=== PATIENT | female | born 1995 | race Caucasian/White ===

== ENCOUNTER 2016-11-22 07:23 | Inpatient (IN) ==
[2016-11-22] MEDS ORDERED: Ipratropium/Albuterol Neb 3 ML IH ONE ×2 (07:43→07:47)
[2016-11-22] MEDS ORDERED: predniSONE 20 MG TABLET PO ONE (07:47)
--- NOTE | 2016-11-22 07:51 | Emergency Department Note ---
Disposition Clinical Impression: Pulmonary embolism Qualifiers: Pulmonary embolism type: other Chronicity: acute Acute cor pulmonale presence: without acute cor pulmonale Qualified Code(s): I26.99 - Other pulmonary embolism without acute cor pulmonale Disposition: Admitted As Inpatient Condition: Fair Time of Disposition: 13:02 SOB HPI - General Chief Complaint: ED Shortness of Breath/Dyspnea Stated Complaint: HAILEE Source: patient Limitations: no limitations Nursing Notes Reviewed: Yes Vital Signs Reviewed: Yes - History of Present Illness 21-year-old female was at work today, started feeling pain in her chest, pain with deep inspiration. Patient also has shortness of breath, history of asthma , she only takes when necessary albuterol, and did use her coworkers albuterol today and seemed to help her symptoms somewhat she does use OCPs started in May 2016 previousy on Depo 6/10 CP retrosternal, tight feeling, worse with inspiration. She has no history of blood clots. Pt Subjective Complaint: shortness of breath Onset (ago): day(s) Severity: mild Improves with: nothing Worsens with: nothing Associated symptoms: Reports: chest pain, wheezing. Denies: fever, cough Treatment prior to arrival: bronchodilator Cough present: No - Related Data Home Medications Medication Instructions Recorded Confirmed Levothyroxine [Synthroid] 125 mcg PO HS 11/22/16 11/22/16 Norgestimate-Ethinyl Estradiol 1 tab PO HS 11/22/16 11/22/16 [Sprintec 28 Day Tablet] Allergies Allergy/AdvReac Type Severity Reaction Status Date / Time codeine Allergy Difficulty Verified 11/22/16 13:21 Breathing ketorolac [From Toradol] Allergy Swelling Verified 11/22/16 13:21 of the Eye Review of Systems: All systems were reviewed with historian and negative except as per below, or as documented in the HPI. Constitutional: Denies: fever, chills, weight changes Eyes: Denies: vision changes, eye pain ENT: Denies: nasal congestion, sore throat CV: + for chest pain Denies: chest pain, palpitations Resp: +dyspnea Denies: cough, hemoptysis GI: Denies: abdominal pain, N/V/D/C Denies: dysuria, hematuria MSK: Denies: back pain, neck pain, extremity pain Skin: Denies: new rashes, new lesions Neuro: Denies: DELGADO, weakness, sensory changes, gait difficulty Psych: Denies: anxiety, depression All systems ED: reviewed and negative except as stated. Past Medical History - Past Medical History Attestation: Yes The following information was validated with the patient. Source: patient Medical history: Reports: asthma, thyroid disease Psychiatric history: Reports: no psych history GENERAL MANAGER IN TRAINING history: Reports: polycystic ovary syndrome - Social History Smoking Status: Never smoker Smokeless Tobacco Status: No Alcohol use: Reports: none Drug use: Reports: none Physical Exam Constitutional: alert and oriented appears agitated. vital signs reviewed and wnl HEENT: NCAT, sclera anicteric, PERRLA bilaterally, normal external ears bilaterally, nasal septum nondeviated, average dentition, MMM Neck: normal inspection, neck is supple, trachea midline Resp: Wheezes scattered bilat CV: RRR, no m/g/r GI: normal inspection, Soft, NTND, BS present Back: normal inspection, no tenderness to palpation Skin: No rashes, skin warm, dry, intact - General Limitations: no limitations General appearance: alert Course Course Narrative: 21-year-old female chest pain shortness of breath, we will give doing nebs, steroids, reassessing the patient some wheezing on her exam - Reevaluation(s) Reevaluation #1: With no improvement after 2 nebs, patient does have chest pain, given his diffuse, cannot essentially rule her out with PERC criteria, I did a d-dimer that was elevated at 900, so CTA was ordered. This is pending at this time. StAble O2 sats 100%, other vital signs within normal limits Time: 11:10 Reevaluation #2: Pulmonary embolism found on CTA, patient started on heparin, after BMP CBC and coagulation studies were ordered, I did discuss the case with due to, and the patient, she understands that she will be likely on anticoagulation for period of time, no true provoking factors, patient does not have a clear history of coagulopathy, except for her paternal grandmother in elderly age. Time: 13:00 Vital Signs Temperature 98 F 11/22/16 07:33 Pulse Rate 71 11/22/16 07:33 Respiratory Rate 16 11/22/16 07:33 Blood Pressure 128/84 11/22/16 07:33 O2 Sat by Pulse Oximetry 97 11/22/16 07:33 Temperature 98 F 11/22/16 07:33 Pulse Rate 102 11/22/16 13:19 Respiratory Rate 16 11/22/16 13:19 Blood Pressure 116/59 11/22/16 13:19 O2 Sat by Pulse Oximetry 98 11/22/16 13:19 Oxygen Delivery Oxygen Delivery Nasal Cannula Shortness of Breath/Dyspnea - MDM Narrative Medical decision making narrative: 21-year-old female with new onset unprovoked pulmonary embolus started on anticoagulation in stable condition, and admitted to medicine service - Differential Diagnosis Likely: acute exacerbation of chronic obstructive airways disease, congestive heart failure - Medical Records Medical records reviewed: Yes I reviewed the patient's medical records. - Lab Data Lab results reviewed: Yes I reviewed the patient's lab results. Result diagrams: 11/22/16 12:52 Lab Results 11/22/16 11/22/16 Range/Units 09:01 12:52 D-Dimer 904 H (0-500) ng/mLFEU Sodium 137 (136-145) mEq/L Potassium 4.3 (3.5-4.5) mEq/L Chloride 106 (98-109) mEq/L Carbon Dioxide 19 (19-29) mEq/L BUN 8 (7-20) mg/dL Creatinine 0.76 (0.57-1.11) mg/dL Est GFR ( Amer) > 60 (> 60) Est GFR (Non-Af Amer) > 60 (> 60) BUN/Creatinine Ratio 11 (6-26) Glucose 133 H (70-99) mg/dL Calculated Osmolality 284 (280-300) Calcium 9.8 (8.6-10.8) mg/dL - Radiology Data Radiology results reviewed: Yes I reviewed the patient's radiology results. Chest X-Ray 11/22/16 07:56 IMPRESSION: Normal chest x-ray D/ / Conor Reed MD / Conor Reed MD Interpreting Provider: Conor Reed MD - EKG Data EKG attestation: Yes I reviewed and interpreted this EKG. EKG shows normal: Reports: sinus rhythm Rate: Reports: normal (71 bpm NM 178 QRS [address] segment elevations or depressions,) Rhythm: Reports: NSR [place]/QRS: Reports: normal When compared to previous EKG there are: previous EKG unavailable Interpretation: Reports: normal EKG, nonspecific ST-T wave changes - Core Measures AMI Core Measures Followed: No Measure Exclusions: not indicated
--- NOTE | 2016-11-22 07:53 | Emergency Department Note ---
START Narrative - START START: I examined this patient and my medical decision-making was reviewed with the FINANCIAL AID COORDINATOR/PA/Advanced Practice Nurse/Resident Physician. I agree with the documented findings, disposition and treatment plan as described except to the extent set forth below. ED attending note: Patient seen with emergency medicine resident Dr. Franks. Please see a copy of his note for details of the H&P, evaluation, management and disposition of this patient. We independently had [id number] contact with the patient Briefly: 21-year-old female presents with difficulty in breathing history of asthma. Had some mild expiratory adventitious breath sounds. EKG shows normal sinus rhythm without acute ischemic changes. Disposition pending. Patient stable.
[2016-11-22] MEDS ORDERED: *HR* Heparin 5,000 UNIT/ML VIAL IVP ONE (12:30)
[2016-11-22] MEDS ORDERED: *HR* Heparin 5,000 UNIT/ML VIAL IVP PRN (12:30)
[2016-11-22] MEDS ORDERED: *HR* HYDROmorphone (PF) 1 MG/ML SYRINGE IVP ONE (12:36)
[2016-11-22] MEDS ORDERED: Ondansetron 4 MG/2 ML VIAL IVP ONE (12:36)
[2016-11-22 13:11] LABS: BUN/Creatinine Ratio 11 (6-26); Blood Urea Nitrogen 8 mg/dL (7-20); Calcium 9.8 mg/dL (8.6-10.8); Carbon Dioxide 19 mEq/L (19-29); Chloride 106 mEq/L (98-109); Glucose 133 mg/dL (70-99); Osmolality,Calculated 284 (280-300); Potassium 4.3 mEq/L (3.5-4.5); Sodium 137 mEq/L (136-145); eGFR For African Americans > 60 (> 60); eGFR For Non-African Americans > 60 (> 60)
[2016-11-22] MEDS ORDERED: Acetaminophen 325 MG TABLET PO PRN (13:34)
[2016-11-22] MEDS ORDERED: Naloxone 0.4 MG/ML INJ IVP PRN (13:34)
--- NOTE | 2016-11-22 14:02 | Internal Med History&Physical ---
Addendum entered and electronically signed by Lashell Clancy CNP 11/23/16 01: 03: This evening, patient was reporting headache, left arm numbness and tingling, and right knee pain. Headache and right knee pain were unrelieved by tylenol. On re-examination, patient had equal strength bilaterally, normal capillary refill, cranial nerves intact, no pronator drift. Patient given norco for pain. Patient reported pain in knee was relieved, but headache and left arm numbness and tingling persisted. CT of head and brain ordered. Original Note: <Lashell Clancy - Last Filed: 11/23/16 01:01> Date of Encounter: 11/22/16 Time of Encounter: 13:44 Assessment and Plan (1) Pulmonary embolism Status: Acute Patient presented with pain with breathing and SOB. D-dimer was elevated to 900 and CTA revealed small nonocclusive emboli on right and questionable emboli on the left. She is on oral control pills to regulate her periods. She does not smoke. She reports her grandmother recently had a PE. She reports her knees have felt achy in the last week, but denies any increased swelling of the legs. On exam, legs are not edematous, no erythema or tenderness. Heparin drip BLE dopplers echocardiogram hypercoagulable work up Check CBC and coags again tomorrow. Transition to oral anticoagulation tomorrow. Qualifiers: Pulmonary embolism type: other Chronicity: acute Acute cor pulmonale presence: without acute cor pulmonale Qualified Code(s): I26.99 - Other pulmonary embolism without acute cor pulmonale (2) Asthma Status: Acute continue home dose of albuterol inhaler prn Qualifiers: Asthma severity: unspecified severity Asthma complication type: uncomplicated Qualified Code(s): J45.909 - Unspecified asthma, uncomplicated (3) DVT prophylaxis Status: Acute ambulate with assistance anti-embolic stockings Patient on heparin drip for PE diagnosis Internal Medicine - H&P: HPI Chief complaint: chest pain and shortness of breath Admitted From: Emergency Dept Plans for Post Hospital Care: Home History of present illness: Ms. Rogers is a 21 year old female with asthma, polymenorrhea controlled with control, hypothyroid, who presented to emergency department today with complaints of chest pain with breathing and shortness of breath. She reports she first noted a sharp pain in her right side on breathing 2 days ago and thought she may be starting to get sick. She started coughing yesterday and had pain in her chest with coughing. Today, she was at work and started having sharp chest pain in her mid sternal area radiating to her right side, accompanied by shortness of breath. She reports when she takes a deep breath or cough the pain occurs. She denies any palpitations, headache. She reports some lightheadedness earlier today as while she has been in the ED. She denies any nausea, vomiting, abdominal pain, diarrhea. She denies any fever, chills, sweats, body aches. She does note her knees have been aching the last week denies any noticeable swelling in her legs. Evaluation in the emergency department included a chest x-ray which was normal, EKG which showed NSR, A d- dimer which was elevated at 907 CTA was obtained and showed small nonocclusive emboli on the right and questionable on the left. As well as patchy airspace opacity and superior left lower lobe. On exam patient is alert and oriented in no acute distress. She has inspiratory wheezes bilaterally, lower extremities are nonedematous with no erythema noted tenderness. Past Med Surg Social Fam HX - Past Medical History Medical history: asthma, thyroid disease Psychiatric history: no psych history - Past Surgical History Surgical History: orthopedic, other (right hip surgery 2016) - Social History Smoking Status: Never smoker Smokeless Tobacco Status: No Alcohol use: none Drug use: none - Family History Maternal Grandmother Hx Family Cardiac Disorders: Yes Hx Family Cancer: Yes Hx Family Endocrine Disorder: Yes (diabetes) Internal Medicine - H&P: Meds Levothyroxine [Synthroid] 125 mcg PO HS 11/22/16 [History] Norgestimate-Ethinyl Estradiol [Sprintec 28 Day Tablet] 1 tab PO HS 11/22/16 [ History] Albuterol Sulfate [Proair Hfa] 2 puff IH Q4-6H PRN 11/23/16 [History] Rivaroxaban [Xarelto] 15 mg PO BID 60 Days 11/24/16 [Rx] Allergies codeine Allergy (Verified 11/22/16 13:21) Difficulty Breathing ketorolac [From Toradol] Allergy (Verified 11/22/16 13:21) Swelling of the Eye Facial Swelling All Systems PM: A 10-system review of systems was performed and is negative for pertinent findings except as documented above in the HPI. - Constitutional Constitutional: no chills, no fever(s), no night sweats - EENT Eyes: no change in vision, no discharge, no pain, no photophobia Ears: no ear discharge, no ear pain, no tinnitus Nose, mouth and throat: no dysphagia, no nasal discharge, no neck pain, no sore throat - Cardiovascular Cardiovascular ROS IM: chest pain, dyspnea, dyspnea on exertion, lightheadedness , no diaphoresis, no palpitations, no syncope - Respiratory Respiratory: cough, dyspnea, dyspnea on exertion, pain on inspiration, pain with cough, no wheezing, no excessive phlegm production - Gastrointestinal Gastrointestinal: no abdominal pain, no diarrhea, no hematemesis, no hematochezia, no melena, no nausea, no vomiting - Genitourinary Genitourinary: no change in urinary stream, no dysuria, no flank pain, no hematuria - Musculoskeletal Musculoskeletal ROS IM: no numbness, no tingling - Integumentary Integumentary IM: no rash, no unusual bruising - Neurological Neurological ROS: no confusion, no convulsions, no focal weakness, no numbness, no tingling, no tremor(s) - Hematologic/Lymphatic Hematologic/Lymphatic: no easy bruising - Constitutional Vitals: Temp Pulse Resp BP Pulse Ox 98 F 102 16 116/59 98 11/22/16 07:33 11/22/16 13:19 11/22/16 13:19 11/22/16 13:19 11/22/16 13:19 General appearance: Present: A&O X 3, pleasant, no acute distress - Head Head exam: Present: atraumatic, normocephalic - Eye Eye exam: Present: PERRL, conjuntiva pink, sclera anicteric Pupils: Present: PERRL - Neck Neck exam general surgery: Present: supple, trachea midline. Absent: lymphadenopathy - Respiratory Respiratory exam: Present: wheezes (inspiratory). Absent: accessory muscle use , rales, rhonchi - Cardiovascular Cardiovascular exam: Present: RRR, +S1, +S2. Absent: diastolic murmur, gallop, rubs, systolic murmur - GI/Abdominal GI/Abdominal exam: Present: normal bowel sounds, soft, no peritoneal signs. Absent: distended, tenderness - Extremities Exam Extremities exam: Present: warm, radial pulses palpable and symetrical. Absent : calf tenderness, cyanotic, pedal edema - Neurological Exam Neurological exam: Present: CN II-XII intact, oriented X3, no focal deficits. Absent: facial droop, speech deficit - Skin Skin exam: Present: dry, intact Internal Med - H&P Results - Labs CBC & Chem 7: 11/22/16 14:30 11/22/16 12:52 Labs: All Lab Results (24 Hours) 11/22/16 11/22/16 Range/Units 09:01 12:52 D-Dimer 904 H (0-500) ng/mLFEU Sodium 137 (136-145) mEq/L Potassium 4.3 (3.5-4.5) mEq/L Chloride 106 (98-109) mEq/L Carbon Dioxide 19 (19-29) mEq/L BUN 8 (7-20) mg/dL Creatinine 0.76 (0.57-1.11) mg/dL Est GFR ( Amer) > 60 (> 60) Est GFR (Non-Af Amer) > 60 (> 60) BUN/Creatinine Ratio 11 (6-26) Glucose 133 H (70-99) mg/dL Calculated Osmolality 284 (280-300) Calcium 9.8 (8.6-10.8) mg/dL - Diagnostic Studies Chest x-ray Additional comments: Chest X-Ray 11/22/16 07:56 IMPRESSION: Normal chest x-ray D/ / Conor Reed MD / Conor Reed MD Interpreting Provider: Conor Reed MD CT scan - chest Additional comments: Chest CTA 11/22/16 09:24 IMPRESSION: Small nonocclusive emboli are noted on the right and are questioned on the left. There is patchy airspace opacity in the superior segment left lower lobe which may represent sequela of infarction versus pneumonia. Findings were discussed with Asif Franks at 12:27 pm on 11/22/2016. D/ / 11/22/2016 12:33:10 Ash Grace MD / michael Interpreting Provider: Ash Grace MD <Navin Keen - Last Filed: 11/24/16 17:46> Internal Medicine - H&P: HPI History of present illness: Ms. Rogers is a 21 year old female Past Med Surg Social Fam HX - Family History Maternal Grandmother Hx Family Cardiac Disorders: Yes Hx Family Cancer: Yes Hx Family Endocrine Disorder: Yes (diabetes) Paternal Grandmother Hx Family Respiratory Disorders: Yes (recently having a pulmonary embolus.) All Systems PM: A 10-system review of systems was performed and is negative for pertinent findings except as documented above in the HPI. - Constitutional Vitals: Temp Pulse Resp BP Pulse Ox 98.1 F 56 18 119/57 97 11/24/16 07:18 11/24/16 07:18 11/24/16 07:18 11/24/16 07:18 11/24/16 07:18 Internal Med - H&P Results - Labs CBC & Chem 7: 11/24/16 06:49 11/24/16 06:49 Labs: Short CBC 11/24/16 Range/Units 06:49 WBC 7.5 (4.3-11.1) K/mcL Hgb 10.6 L (11.5-15.4) g/dL Hct 34.4 L (35.3-44.9) % Plt Count 220 (140-400) K/mcL Neutrophils # 2.6 (1.6-8.9) K/mcL BMP 11/24/16 06:49 Sodium 140 Potassium 4.1 Chloride 109 Carbon Dioxide 25 BUN 14 Creatinine 0.72 Glucose 94 Calcium 8.1 L - Impressions ITS Impressions Head CT 11/23/16 00:05 IMPRESSION: No acute intracranial abnormality. D/ / Frankie Thomas MD / Frankie Thomas MD Interpreting Provider: Frankie Thomas MD - Attending Attestation I examined this patient and my medical decision-making was reviewed with the Advanced Practice Nurse. I agree with the documented findings, disposition and treatment plan as described except to the extent set forth below. Patient presents to hospital with chest pain. She was found to have bilateral PEs. We will admitted to the service and treated her with subcutaneous Lovenox. Initiate a hypercoagulable workup. I have discussed the options of anticoagulation with her and she would prefer to start a NOAC.
[2016-11-22 14:52] LABS: Basophils % 0.1 %; Eosinophils % 0.1 %; Hemoglobin 11.4 g/dL (11.5-15.4); Immature Granulocytes % 0.1 % (0-4); Lymphocytes # 0.8 K/mcL (0.6-4.6); Lymphocytes % 9.5 %; Mean Corpuscular HGB Conc 31.7 g/dL (31.6-35.5); Mean Corpuscular Hemoglobin 25.6 pg (28.0-33.3); Mean Corpuscular Volume 80.7 fL (83.0-100.0); Monocytes # 0.1 K/mcL (0.0-1.3); Monocytes % 1.4 %; Neutrophils # 7.1 K/mcL (1.6-8.9); Platelet Count 244 K/mcL (140-400); Red Blood Count 4.46 M/mcL (3.82-4.97); Red Cell Distribution Width 13.1 % (11.5-14.5); Segmented Neutrophils % 88.8 %
[2016-11-22] MEDS ORDERED: Lidocaine 1% 20 ML MDV ID PRN (15:02)
[2016-11-22 16:07] LABS: INR 1.1; Prothrombin Time 11.8 Seconds (9.4-12.1)
[2016-11-22] MEDS: Heparin 25,000 UNIT/500 ML D5W 25,000 UNIT/500 ML MLS IVC SCH (16:22)
[2016-11-22] MEDS: *HR* HYDROcodone/Acet 5/325 mg TABLET PO PRN (21:49)
[2016-11-22 21:56] LABS: Activated Partial Thrombo Time 67.1 Seconds (26.0-36.0)
[2016-11-22 22:14] LABS: INR 1.2; Prothrombin Time 12.6 Seconds (9.4-12.1)
[2016-11-23 03:55] LABS: Basophils % 0.1 %; Eosinophils % 0.1 %; Hematocrit 33.8 % (35.3-44.9); Hemoglobin 10.8 g/dL (11.5-15.4); Immature Granulocytes % 0.2 % (0-4); Lymphocytes # 2.4 K/mcL (0.6-4.6); Lymphocytes % 21.9 %; Mean Corpuscular Hemoglobin 26.1 pg (28.0-33.3); Mean Corpuscular Volume 81.6 fL (83.0-100.0); Mean Platelet Volume 11.7 fL (9.4-12.4); Monocytes # 0.8 K/mcL (0.0-1.3); Monocytes % 7.3 %; Neutrophils # 7.7 K/mcL (1.6-8.9); Platelet Count 249 K/mcL (140-400); Red Blood Count 4.14 M/mcL (3.82-4.97); Red Cell Distribution Width 13.4 % (11.5-14.5); Segmented Neutrophils % 70.4 %
[2016-11-23] MEDS: *HR* HYDROcodone/Acet 5/325 mg TABLET PO PRN ×3 (03:58→22:14)
[2016-11-23 04:06] LABS: INR 1.1; Prothrombin Time 12.2 Seconds (9.4-12.1)
[2016-11-23 04:08] LABS: Activated Partial Thrombo Time 49.8 Seconds (26.0-36.0)
[2016-11-23 04:10] LABS: BUN/Creatinine Ratio 14 (6-26); Blood Urea Nitrogen 9 mg/dL (7-20); Calcium 8.6 mg/dL (8.6-10.8); Carbon Dioxide 23 mEq/L (19-29); Chloride 109 mEq/L (98-109); Glucose 121 mg/dL (70-99); Osmolality,Calculated 288 (280-300); Sodium 139 mEq/L (136-145); eGFR For African Americans > 60 (> 60); eGFR For Non-African Americans > 60 (> 60)
[2016-11-23] MEDS: *HR* Heparin 5,000 UNIT/ML VIAL IVP PRN ×2 (04:14→11:48)
[2016-11-23 10:49] LABS: INR 1.1; Prothrombin Time 11.7 Seconds (9.4-12.1)
[2016-11-23 10:52] LABS: Activated Partial Thrombo Time 45.6 Seconds (26.0-36.0)
--- NOTE | 2016-11-23 10:58 | ECHO - Doppler Report ---
Echocardiogram Name: Gina Rogers Date of Study: 11/23/2016 Date: 1995 Ht: 65.0 in Medical Record#: [id number] Age: 21 Wt: 182.0 lb Gender: Female BSA: 1.9 Order #: [id number] Location: [facility] Room #: [id number] Reading Physician: Bang Tripp DO, NAYE, SERA SWAN Fur Glosser: Stephanie Rider Ordering Physician: Lashell Clancy CNP Primary Physician: Anushka Munguia CNP Indications: PE Impressions: LVEF 60-65%. Normal LV chamber size, wall thickness and function. Normal left ventricular diastolic function. Normal right ventricular structure and function. No evidence of pulmonary hypertension. No significant valvular dysfunction. Left Ventricular Wall Motion: Rest Echo Findings All wall segments showed normal motion. Findings: Study Quality * Technically adequate exam. ECG Findings * Normal sinus rhythm. Left Ventricle * LVEF 60-65%. * Normal LV chamber size, wall thickness and function. * Normal left ventricular diastolic function. Right Ventricle * Normal right ventricular structure and function. Left Atrium * Normal left atrial size. Right Atrium * Normal right atrial size. Interatrial Septum * Interatrial septum not well evaluated. Aortic Valve * Aortic valve not well visualized. * No aortic regurgitation. * No aortic stenosis. Mitral Valve * Normal mitral valve structure and function. * No mitral stenosis. * Trace mitral regurgitation. Tricuspid Valve * Normal tricuspid valve structure and function. * Trace tricuspid regurgitation. * No evidence of pulmonary hypertension. Pulmonic Valve * Normal pulmonic valve structure and function. * No pulmonic regurgitation. Aorta * Normally sized aortic root. Pericardium * The pericardium appears normal. IVC * Normal IVC dimensions and inspiratory collapse. Pulmonary Artery * Normal visualized portions of the main pulmonary artery. History Measurements: BP: 110/ 55 2D Normal Values RVIDd: 2.55 cm <2.7 cm IVSd: 1.00 cm 0.6 - 1.0 cm LVIDd: 4.45 cm 3.7 - 5.6 cm LVPWd: .95 cm 0.6 - 1.1 cm LVIDs: 2.40 cm 1.5 - 3.6 cm AO: 2.00 cm < 4.0 cm LA: 3.30 cm 2.0 - 4.0cm %FS: 46.70 cm >25 % LA volume: 31 Mitral Valve Peak E:.97 m/sec Peak A:.50 m/sec E/A Ratio:1.9 Peak E' Lat Tae:17.6 cm/s Peak E' Med Tae:10.5 cm/s E/E' Lat Ratio:5.5 E/E' Med Ratio:9.2 Tricuspid Valve TV Regurg Peak Grad: 22.00mmHg TV Regurg Peak Tae: 2.36m/sec Updated by Bang Tripp DO, FACEliazar, SOSA, FASANN MARIE on 11/23/2016 10:47:06 AM electronically signed on 11/23/2016 10:53:44 AM with status of Final Wall Motion Alvarado: 1=Normal, 2=Hypokinesis, 3=Akinesis, 4=Dyskinesis, 5=Aneurysmal, 6=Hyperkinetic, X=Not Visualized (Blank)=Missing
[2016-11-23] MEDS: Heparin 25,000 UNIT/500 ML D5W 25,000 UNIT/500 ML MLS IVC SCH (11:46)
--- NOTE | 2016-11-23 15:29 | Electrocardiograph Report ---
[place] [id number] Test Date: 2016-11-22 Pat Name: Gina Rogers Department: 103 Room: [facility] [place] Gender: F Continuous Loft Operator: : 1995 Requested By: Asif Franks Order Number: [id number] Reading MD: Maxx Vargas MD Measurements Intervals [place] Rate: 71 P: 27 MT: 158 QRS: 50 QRSD: 93 T: 35 QT: 382 QTc: 405 Interpretive Statements SINUS RHYTHM WITH SINUS ARRHYTHMIA Poor R wave progression Electronically Signed On 11-23-2016 15:27:26 EDT by Maxx Vargas MD
--- NOTE | 2016-11-23 17:07 | Internal Med Progress Note ---
Date of Encounter: 11/23/16 Time of Encounter: 10:00 - Assessment and plan (1) Pulmonary embolism Current Visit: Yes Status: Acute Assessment and plan: Acute PE on CTA. Symptoms of pleuritic chest pain. Patient has history of OCP use. Family history of PE (Grandmother) 1. Will continue heparin drip. 2. Duplex legs shows no DVT. 3. Echo shows no signs of RV strain. 4. Advised patient to stop taking OCP 5. May switch to xarelto if insurance covers. 6. Oncology consult. 7. Coagulopathy workup ordered. Patient is at high risk because she is on heparin drip, need close monitoring. Qualifiers: Pulmonary embolism type: other Chronicity: acute Acute cor pulmonale presence: without acute cor pulmonale Qualified Code(s): I26.99 - Other pulmonary embolism without acute cor pulmonale (2) Asthma Current Visit: Yes Status: Acute Assessment and plan: Stable, continue home medication Qualifiers: Asthma severity: unspecified severity Asthma complication type: uncomplicated Qualified Code(s): J45.909 - Unspecified asthma, uncomplicated (3) DVT prophylaxis Current Visit: Yes Status: Acute Assessment and plan: Patient is on heparin drip - Subjective Interval history: Patient is a 21-year-old female admitted for acute PE. Past medical history is significant for asthma, OCP use. Patient was seen and examined. She is awake alert and oriented 3. Still complaining of mild chest pain on deep breathing. Vitals are stable. No tachycardia, no hypotension, Echo has been done, no signs of right ventricular strain. Will continue heparin drip for anticoagulation. Patient said she would like to switch to xarelto. Prescription has been sent to pharmacy for insurance coverage check. We will treatment counselor hematology for further management. - Constitutional Vitals: Temp Pulse Resp BP Pulse Ox 98.1 F 66 15 118/46 98 11/23/16 16:00 11/23/16 16:00 11/23/16 16:00 11/23/16 16:00 11/23/16 16:00 General appearance: Present: A&O X 3, pleasant, no acute distress - Head Head exam: Present: atraumatic, normocephalic - Eye Eye exam: Present: PERRL, conjuntiva pink, sclera anicteric Pupils: Present: PERRL - Neck Neck exam general surgery: Present: supple, trachea midline. Absent: lymphadenopathy - Respiratory Respiratory exam: Present: CTAB. Absent: accessory muscle use, rales, rhonchi, wheezes - Cardiovascular Cardiovascular exam: Present: RRR, +S1, +S2. Absent: diastolic murmur, gallop, rubs, systolic murmur - GI/Abdominal GI/Abdominal exam: Present: normal bowel sounds, soft, no peritoneal signs. Absent: distended, tenderness - Extremities Exam Extremities exam: Present: warm, radial pulses palpable and symetrical. Absent : calf tenderness, cyanotic, pedal edema - Neurological Exam Neurological exam: Present: CN II-XII intact, oriented X3, no focal deficits. Absent: pronater drift, facial droop, speech deficit - Skin Skin exam: Present: dry, intact Internal Medicine: Result - Labs CBC & Chem 7: 11/23/16 03:48 11/23/16 03:48 Labs: Short CBC 11/23/16 Range/Units 03:48 WBC 11.0 (4.3-11.1) K/mcL Hgb 10.8 L (11.5-15.4) g/dL Hct 33.8 L (35.3-44.9) % Plt Count 249 (140-400) K/mcL Neutrophils # 7.7 (1.6-8.9) K/mcL BMP 11/23/16 03:48 Sodium 139 Potassium 4.0 Chloride 109 Carbon Dioxide 23 BUN 9 Creatinine 0.66 Glucose 121 H Calcium 8.6 - ABG Interpretation ABG results: PT/INR, D-dimer PT 11.7 Seconds (9.4-12.1) 11/23/16 10:37 D-Dimer 904 ng/mLFEU (0-500) H 11/22/16 09:01 - Impressions Impressions Head CT 11/23/16 00:05 IMPRESSION: No acute intracranial abnormality. D/ / Frankie Thomas MD / Frankie Thomas MD Interpreting Provider: Frankie Thomas MD - VTE Documentation of Mechanical Device: Graduated compression elastic hosiery Consult Discharge Plan - Plan Referrals: Anushka Munguia, [employer] [Primary Care Provider] -
[2016-11-23] MEDS ORDERED: Ondansetron 4 MG/2 ML VIAL IVP PRN (19:38)
[2016-11-24] MEDS: *HR* Heparin 5,000 UNIT/ML VIAL IVP PRN (01:14)
[2016-11-24] MEDS: Heparin 25,000 UNIT/500 ML D5W 25,000 UNIT/500 ML MLS IVC SCH (06:20)
[2016-11-24 07:11] LABS: Basophils % 0.5 %; Eosinophils # 0.3 K/mcL (0.0-0.6); Eosinophils % 3.9 %; Hematocrit 34.4 % (35.3-44.9); Hemoglobin 10.6 g/dL (11.5-15.4); Immature Granulocytes % 0.1 % (0-4); Lymphocytes # 4.1 K/mcL (0.6-4.6); Lymphocytes % 54.9 %; Mean Corpuscular HGB Conc 30.8 g/dL (31.6-35.5); Mean Corpuscular Hemoglobin 25.4 pg (28.0-33.3); Mean Corpuscular Volume 82.5 fL (83.0-100.0); Monocytes # 0.4 K/mcL (0.0-1.3); Monocytes % 5.7 %; Neutrophils # 2.6 K/mcL (1.6-8.9); Platelet Count 220 K/mcL (140-400); Red Blood Count 4.17 M/mcL (3.82-4.97); Red Cell Distribution Width 13.3 % (11.5-14.5); Segmented Neutrophils % 34.9 %
[2016-11-24 07:20] VITALS: BP 119/57
[2016-11-24 07:24] LABS: BUN/Creatinine Ratio 19 (6-26); Blood Urea Nitrogen 14 mg/dL (7-20); Calcium 8.1 mg/dL (8.6-10.8); Carbon Dioxide 25 mEq/L (19-29); Chloride 109 mEq/L (98-109); Glucose 94 mg/dL (70-99); Osmolality,Calculated 290 (280-300); Potassium 4.1 mEq/L (3.5-4.5); Sodium 140 mEq/L (136-145); eGFR For African Americans > 60 (> 60); eGFR For Non-African Americans > 60 (> 60)
[2016-11-24 07:36] LABS: Activated Partial Thrombo Time 120.7 Seconds (26.0-36.0)
[2016-11-24 08:15] LABS: Heparin anti-factor XA UFH 1.05 IU/mL (0.30-0.70)
[2016-11-24 08:39] LABS: Factor V Leiden Normal (Normal); Prothrombin G20210A Mutation Normal (Normal)
--- NOTE | 2016-11-24 08:49 | Discharge Summary ---
Date of Encounter: 11/24/16 Time of Encounter: 08:47 - Discharge Diagnosis (1) Pulmonary embolism Priority: Primary Status: Acute Comments: Acute pulmonary emboli likely related to contraception medication Qualifiers: Pulmonary embolism type: other Chronicity: acute Acute cor pulmonale presence: without acute cor pulmonale Qualified Code(s): I26.99 - Other pulmonary embolism without acute cor pulmonale (2) Asthma Priority: Secondary Status: Acute Qualifiers: Asthma severity: unspecified severity Asthma complication type: uncomplicated Qualified Code(s): J45.909 - Unspecified asthma, uncomplicated (3) DVT prophylaxis Priority: Secondary Status: Acute (4) Hypothyroidism Priority: Secondary Status: Acute Qualifiers: Hypothyroidism type: other Qualified Code(s): E03.8 - Other specified hypothyroidism - Discharge Medications Prescriptions: Rivaroxaban [Xarelto] 15 mg PO BID 60 Days Home Medications: Levothyroxine [Synthroid] 125 mcg PO HS 11/22/16 [History] Norgestimate-Ethinyl Estradiol [Sprintec 28 Day Tablet] 1 tab PO HS 11/22/16 [ History] Albuterol Sulfate [Proair Hfa] 2 puff IH Q4-6H PRN 11/23/16 [History] Rivaroxaban [Xarelto] 15 mg PO BID 60 Days 11/24/16 [Rx] Allergies/Adverse Reactions: Allergies codeine Allergy (Verified 11/22/16 13:21) Difficulty Breathing ketorolac [From Toradol] Allergy (Verified 11/22/16 13:21) Swelling of the Eye Facial Swelling Procedures/tests Complete & Pending: Procedures Performed prior 72 hours Category Date Time Status CT head/brain wo con [CT] Stat Cat Scan 11/23/16 00:05 Completed Date of admission: 11/22/16 14:26 Primary care physician: Anushka Munguia CNP Consults: 11/22/16 15:02 Consult to Invasive Line Access Team [CONS] Routine Reason for Consult: difficult access Line Type: EPIV 11/23/16 14:26 Consult to Oncology [CONS] Routine Consulting Provider: [facility] Reason for Consult: Acute PE Call Completed: Yes 11/23/16 21:43 Consult to Oncology Hematology [CONS] Routine Consulting Provider: Anushka Erickson Reason for Consult: PE Call Completed: Yes - Patient Status Disposition: Home, Self-Care Condition: Good Overall status at discharge: patient is back to baseline - Discharge Instructions Follow Up With: Anushka Munguia CNP [Primary Care Provider] - Additional Instructions: Follow with primary care physician within the next 7 days. Continue Xarelto 15 mg for 21 days then start 20 mg daily and continue for 6 months. Stop control medications. Follow-up with hematology within the next 2 weeks - Diet and Activity Activity: increase activity as tolerated Diet: regular diet Hospital course: Ms. Rogers is a 21 year old female with asthma, polymenorrhea controlled with control, hypothyroid, who presented to emergency department with complaints of chest pain with breathing and shortness of breath. She reported she first noted a sharp pain in her right side on breathing 2 days right ear to admission and thought she may be starting to get sick. She started coughing and had pain in her chest with coughing. She was at work and started having sharp chest pain in her mid sternal area radiating to her right side, accompanied by shortness of breath. She reported when she takes a deep breath or cough the pain occurs. She denied any palpitations, headache. She denied any fever, chills, sweats, body aches, no sick contacts. She does note her knees have been aching the last week denies any noticeable swelling in her legs. Evaluation in the emergency department included a chest x-ray which was normal, EKG which showed NSR, A d-dimer which was elevated at 9[address] CT angiogram of the chest shows a small nonocclusive emboli on the right long and question on the left. There was a patchy airspace opacity in the superior segment of the left lower lobe possibly an infarction, unlikely pneumonia as the patient is not symptomatic. Echocardiogram shows an ejection fraction of 60-65% with no other abnormalities The patient was continued on heparin drip, patient remained stable, she is not tachycardic or hypotensive. Saturation of oxygen is normal. Patient preferred to be discharged on Xarleto. Risks explained. The patient will have to follow up with oncology to receive the final reports of the tests performed during her hospitalization including protein C, S, lupus anticoagulant, etc. - Time Spent with Patient Total time spent providing and/or coordinating discharge services: Greater than 30 minutes (40 [id number] min) - Constitutional Vitals: Temp Pulse Resp BP Pulse Ox 98.1 F 56 18 119/57 97 11/24/16 07:18 11/24/16 07:18 11/24/16 07:18 11/24/16 07:18 11/24/16 07:18 General appearance: Present: A&O X 3, pleasant, no acute distress - Head Head exam: Present: atraumatic, normocephalic - Eye Eye exam: Present: PERRL, conjuntiva pink, sclera anicteric Pupils: Present: PERRL - Neck Neck exam general surgery: Present: supple, trachea midline. Absent: lymphadenopathy - Respiratory Respiratory exam: Present: CTAB. Absent: accessory muscle use, rales, rhonchi, wheezes - Cardiovascular Cardiovascular exam: Present: RRR, +S1, +S2. Absent: diastolic murmur, gallop, rubs, systolic murmur - GI/Abdominal GI/Abdominal exam: Present: normal bowel sounds, soft, no peritoneal signs. Absent: distended, tenderness - Extremities Exam Extremities exam: Present: warm, radial pulses palpable and symetrical. Absent : calf tenderness, cyanotic, pedal edema - Neurological Exam Neurological exam: Present: CN II-XII intact, oriented X3, no focal deficits. Absent: pronater drift, facial droop, speech deficit - Skin Skin exam: Present: dry, intact - VTE Documentation of Mechanical Device: Graduated compression elastic hosiery
[2016-11-24] MEDS ORDERED: *HR* Rivaroxaban 15 MG TABLET PO SCH (09:15)
--- NOTE | 2016-11-24 16:01 | Oncology Inp Consult Note ---
<GeorginaAnushka E - Last Filed: 11/24/16 15:59> Date of Encounter: 11/24/16 Time of Encounter: 15:00 Assessment and Plan (1) Pulmonary embolism Status: Acute Assessment and plan: Patient being discharged today on Xarelto 15 mg bid. We discussed side effects associated with Xarelto She was instructed not to resume control pills. Negative prothrombin mutation. She will f/u as outpatient. Qualifiers: Pulmonary embolism type: other Chronicity: acute Acute cor pulmonale presence: without acute cor pulmonale Qualified Code(s): I26.99 - Other pulmonary embolism without acute cor pulmonale - Data of Consult Patient: new to practice Consult date: 11/24/16 Requesting Physician: Junito Sinclair Primary Care Provider: Anushka Munguia CNP - Consult Narrative Reason for consult: Pulmonary embolism History of present illness: Ms. Rogers is a 21 year old female was admitted to [facility] through the ED. on 11/22/2016 she presented to the emergency room chest pain and increasing shortness of breath. She reported that she first noted shortness of breath about 3-4 days prior to coming to the ER for that day shortness of breath and increased and she was also having sharp chest pain when she took a deep breath. While in the emergency room she had a D-dimer of 907. She also had a CTA of the chest indicated a small nonocclusive emboli in the right and questionable on the left as well as a patchy airspace obesity in the superior left lower lobe. She reported having headache with left arm numbness and tingling the pain was unrelieved by Tylenol, CT of the head was ordered, was negative. She is on oral control secondary to having ovarian cysts. She has no previous history of clots. She reports her maternal grandmother having pulmonary embolism recently. On 11/22/2016 she had an echocardiogram and indicated left ventricular ejection fraction of 60-65% there was no evidence of heart strain. Past Med Surg Social Fam HX - Past Medical History Medical history: asthma, thyroid disease, other (() Psychiatric history: no psych history - Past Surgical History Surgical History: orthopedic, other (right hip surgery 2016) - Social History Smoking Status: Never smoker Smokeless Tobacco Status: No Alcohol use: none Drug use: none Occupational status: employed ([employer] - Family History Maternal Grandmother Hx Family Cardiac Disorders: Yes Hx Family Cancer: Yes Hx Family Endocrine Disorder: Yes (diabetes) Paternal Grandmother Hx Family Respiratory Disorders: Yes (recently having a pulmonary embolus.) - Additional Family History Additional family history: Hypothyroidism, hypertension, diabetes, breast and ovarian cancer, Medications and Allergies Levothyroxine [Synthroid] 125 mcg PO HS 11/22/16 [History] Norgestimate-Ethinyl Estradiol [Sprintec 28 Day Tablet] 1 tab PO HS 11/22/16 [ History] Albuterol Sulfate [Proair Hfa] 2 puff IH Q4-6H PRN 11/23/16 [History] Rivaroxaban [Xarelto] 15 mg PO BID 60 Days 11/24/16 [Rx] Allergies codeine Allergy (Verified 11/22/16 13:21) Difficulty Breathing ketorolac [From Toradol] Allergy (Verified 11/22/16 13:21) Swelling of the Eye Facial Swelling All systems: reviewed and no additional remarkable complaints except as stated Additional comments: COntinues to report having slight shortness of breath on exertion. Oncology - Exam - Constitutional Vitals: Temp Pulse Resp BP Pulse Ox 98.1 F 56 18 119/57 97 11/24/16 07:18 11/24/16 07:18 11/24/16 07:18 11/24/16 07:18 11/24/16 07:18 General appearance: cooperative, no acute distress - Respiratory Respiratory exam: Present: CTAB - Cardiovascular Cardiovascular exam: Present: RRR - Extremities Exam Extremities exam: Present: normal inspection - Neurological Exam Neurological exam: Present: alert, oriented X3 Oncology - Results - Labs Labs: Short CBC 11/24/16 Range/Units 06:49 WBC 7.5 (4.3-11.1) K/mcL Hgb 10.6 L (11.5-15.4) g/dL Hct 34.4 L (35.3-44.9) % Plt Count 220 (140-400) K/mcL Neutrophils # 2.6 (1.6-8.9) K/mcL BMP 11/24/16 06:49 Sodium 140 Potassium 4.1 Chloride 109 Carbon Dioxide 25 BUN 14 Creatinine 0.72 Glucose 94 Calcium 8.1 L Consult Discharge Plan - Plan Instructions: Rivaroxaban (By mouth), Asthma (DC), Pulmonary Embolism (DC), Hypothyroidism (DC) Additional Instructions: Follow with primary care physician within the next 7 days. Continue Xarelto 15 mg for 21 days then start 20 mg daily and continue for 6 months. Stop control medications. Follow-up with hematology within the next 2 weeks Referrals: Anushka Erickson CNP [Partnered Physician] - 12/01/16 10:00 am (THIS IS THE ONCOLOGY DEPARTMENT ) Anushka Munguia CNP [Primary Care Provider] - 11/27/16 10:00 am () Prescriptions: Rivaroxaban [Xarelto] 15 mg PO BID 60 Days <Carroll Hartmann S - Last Filed: 11/25/16 13:27> - Data of Consult Requesting Physician: Junito Sinclair Primary Care Provider: Anushka Munguia CNP - Consult Narrative History of present illness: Ms. Rogers is a 21 year old female Oncology - Exam - Constitutional Vitals: Temp Pulse Resp BP Pulse Ox 98.1 F 56 18 119/57 97 11/24/16 07:18 11/24/16 07:18 11/24/16 07:18 11/24/16 07:18 11/24/16 07:18 - Attending Attestation 1. Pulmonary embolism. Small clot burden mostly in the right lung. Risk factors include estrogen supplementation which should be discontinued in the near future Okay to be on Xarelto PO. Duration of anticoagulation probably one year. Genetic workup pending. Prothrombin gene mutation negative 2. Menorrhagia was regulated on estrogen containing pills 3. Microcytic anemia hemoglobin 10.6 most likely secondary to menorrhagia. We will follow her up as an outpatient
--- NOTE | 2016-11-24 16:19 | Venous Imaging Report ---
LE Venous Duplex Patient Name:Gina Rogers Order Number:[id number] Procedure Date:11/23/2016 Date:1995Age:21 yrs Gender:Female Location:[facility] Room #: 2NE25 Automatic Vulcanizing Lead Operator:Stephanie Rider Referring MD:Lashell Clancy CNP header boss:Anushka Munguia, RN IMAGING Reading MD:Yehuda Coreas MD Secondary Indications: Risk Factors Yes/No Hypertension No Hypercholesterolemia No Diabetes No Oral Contraceptive Use Yes Impressions: Bilateral lower extremity: normal superficial and deep exam. Recommendations: After imaging the patient returned to their room. Test completed on 11/23/2016 at 10:15:00 am. Findings Venous Duplex Results: Right: Venous imaging of the lower extremity reveals full patency and normal vessel compressibility of the right distal iliac, right common femoral, right superficial femoral, right popliteal, right posterior tibial, right peroneal, right great saphenous and right lesser saphenous. Doppler signals in the evaluated veins were normal. Left: Venous imaging of the lower extremity reveals full patency and normal vessel compressibility of the left distal iliac, left common femoral, left superficial femoral, left popliteal, left posterior tibial, left peroneal, left great saphenous and left lesser saphenous. Doppler signals in the evaluated veins were normal. Lower Extremity Venous Duplex Side Vein Compress Spontaneous Flow Augment Diameter (cm) Depth (cm) Right Distal Iliac Normal Yes Phasic Yes Right Common Femoral Normal Yes Phasic Yes Right Superficial Femoral Normal Yes Phasic Yes Right Popliteal Normal Yes Phasic Yes Right Posterior Tibial Normal Yes Phasic Yes Right Peroneal Normal Yes Phasic Yes Right Great Saphenous Normal Yes Phasic Yes Right Lesser Saphenous Normal Yes Phasic Yes Left Distal Iliac Normal Yes Phasic Yes Left Common Femoral Normal Yes Phasic Yes Left Superficial Femoral Normal Yes Phasic Yes Left Popliteal Normal Yes Phasic Yes Left Posterior Tibial Normal Yes Phasic Yes Left Peroneal Normal Yes Phasic Yes Left Great Saphenous Normal Yes Phasic Yes Left Lesser Saphenous Normal Yes Phasic Yes Updated by Yehuda Coreas MD on 11/24/2016 4:14:51 PM electronically signed on 11/24/2016 4:15:02 PM with status of Final
[2016-11-25 07:38] LABS: Homocysteine 4 umol/L (<=10)
[2016-11-25 20:05] LABS: APTT (LE Anticoag) 38 sec (32-48); Diluted Russell Viper Venom 40 sec (33-44); PT (LE-Anticoag) 13.2 sec (12.0-15.5)
[2016-11-26 07:22] LABS: Antithrombin III, Activity 88 % (76-128); Protein C, Functional 149 % (83-168)
[2016-11-26 07:23] LABS: Protein S Antigen, Total 73 % (63-126); Protein S, Functional 62 % (57-131)
== END 2016-11-24 16:09 | disposition home or self-care (01) | DRG 176 ==
LOC: 2NENU 07:23 → EMEROO 07:23 → SUATTDRO 14:26 → 2NENU 16:52
PROVIDERS: ADMIT Internal Medicine; ATTEND Internal Medicine